=== PATIENT | male | born 2000 | race American Indian/Alaskan Native ===

== ENCOUNTER 2020-07-04 05:18 | Emergency (ER) | payer SELFPAY ==
[2020-07-04 05:54] VITALS: BP 110/71
--- NOTE | 2020-07-04 06:37 | XRay Report ---
LEFT SHOULDER 3 VIEWS INDICATION: Left shoulder pain. COMPARISON: No relevant prior imaging study available. FINDINGS: No significant skeletal abnormality. No soft tissue calcifications. No soft tissue swelling. IMPRESSION: 1. No acute findings. CERVICAL SPINE 3 VIEWS INDICATION: neck pain COMPARISON: None. FINDINGS: No acute, displaced fracture is seen. As the patient is positioned there is loss of normal cervical lordosis. Alignment is otherwise unrema rkable. Disc space height is maintained. No significant degenerative changes. CONCLUSION: 1. No acute findings. 2. As the patient is positioned there is loss of normal cervical lordosis. Signer Name: Tyrone Rodriguez MD Signed: 07/04/2020 6:32 AM Workstation Name: [id number]
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
== END 2020-07-04 07:47 | disposition home or self-care (01) ==
LOC: ED 05:18
DX: S16.1XXA Strain of muscle, fascia and tendon at neck level, initial encounter (principal); S46.912A Strain of unspecified muscle, fascia and tendon at shoulder and upper arm level, left arm, initial encounter; V89.2XXA Person injured in unspecified motor-vehicle accident, traffic, initial encounter; Y93.89 Activity, other specified; Y92.410 Unspecified street and highway as the place of occurrence of the external cause; Y99.8 Other external cause status
CPT/HCPCS: 72040